=== PATIENT | male | born 1965 | race Caucasian/White ===

== ENCOUNTER → 2016-04-28 | Outpatient (CLI) | payer BC ==
[~2016-04-28] MED LIST: ASPI325T45 PO; CLC100X PO; GLC500 PO; INSU1INJ7 SC; METO50TA16 PO; OXYC-609 PO; SIMV-150 PO; TCMD2 PO
== END | disposition home or self-care (01) ==
LOC: C.LAB1850 07:13
PROVIDERS: ATTEND Nurse Practitioner Family
DX: Z11.59 Encounter for screening for other viral diseases (principal)

== ENCOUNTER → 2016-11-07 | Outpatient (CLI) | payer BC ==
[2016-11-07 12:23] LABS: BASO % 0.2 %; BASO ABS # 0.01 K/uL (0-0.2); COMPLETE YES; EOS % 1.6 %; HEMATOCRIT 52.2 % (42-52); IG% 0.5 %; LYMPH % 27.6 %; LYMPH ABS # 1.78 K/uL (1.2-3.4); MEAN CELL VOLUME 88.3 fL (80-100); MEAN CORPUSCULAR HGB CONC 35.1 g/dl (32-36); MEAN PLATELET VOLUME 10.1 fL (7.4-10.4); MONO % 11.9 %; NEUT % 58.2 %; PLATELET COUNT 200 K/uL (130-400); RED BLOOD COUNT 5.91 M/uL (4.7-6.1); WHITE BLOOD COUNT 6.45 K/uL (4.8-10.8)
[2016-11-07 13:04] LABS: ESTIMATED AVERAGE GLUCOSE 192 mg/dl; HA1C FLAG Normal (Normal)
[2016-11-07 13:28] LABS: ALT/SGPT 40 U/L (12-78); AST/SGOT 31 U/L (15-37); BLOOD UREA NITROGEN 16 mg/dl (7-18); CARBON DIOXIDE 24 mmol/L (21-32); CHLORIDE 108 mmol/L (98-107); GLUCOSE 183 mg/dl (70-99); POTASSIUM 4.2 mmol/L (3.5-5.1); SODIUM 138 mmol/L (136-145)
[2016-11-07 13:34] LABS: ALB/GLOB RATIO 0.9 (0.9-2); ALKALINE PHOSPHATASE 89 U/L (45-117); CHOLESTEROL 199 mg/dl (0-200); CHOLESTEROL/HDL RATIO 6.6; HDL CHOLESTEROL 30 mg/dl; LDL CHOLESTEROL CALCULATED 95 mg/dl; TRIGLYCERIDES 368 mg/dl (0-150); VERY LOW DENSITY LIPOPROT CALC 74 mg/dl
== END | disposition home or self-care (01) ==
LOC: C.LABPVFM 08:37
PROVIDERS: ATTEND Nurse Practitioner Family
DX: E11.9 Type 2 diabetes mellitus without complications (principal); E78.00 Pure hypercholesterolemia, unspecified; I10 Essential (primary) hypertension; I25.10 Atherosclerotic heart disease of native coronary artery without angina pectoris

== ENCOUNTER 2017-07-12 09:00 | Emergency (ER) | payer BC ==
[~2017-07-12] VITALS: Ht 180.3 cm; Wt 91.1 kg
[~2017-07-12 09:00] MED LIST changes: +ASPECOTC PO; -ASPI325T45 PO
[2017-07-12 09:04] VITALS: TEMP 36.4; Ht 180.3 cm; Wt 91.1 kg
--- NOTE | 2017-07-12 09:29 | EMERGENCY ROOM VISIT NOTE ---
History Report prepared by Brandonibe: Mary Lou Barragan Under the Supervision of: Dr. Adama Leija D.O. First contact with patient: 09:13 Chief Complaint: HYPOGLYCEMIA Stated Complaint: LOW SUGAR Nursing Triage Summary: Pt ambulatory with c/o hypoglycemia episode this morning. Pt states approx 0745 started to "sweat profusely", was shaky, dizzy, lightheaded. Reports that blood sugar was 55. Ate mandarin oranges in syrup, fig bars, emergency oral glucose powder and is now feeling better. States he does still feel dizzy and lightheaded. Reports having a similar episode 3 weeks ago and in 2016. at bedside states, "he is supposed to eat a banana before he leaves the house and didn't eat one today." History of Present Illness The patient is a 52 year old male who presents to the Emergency Room with complaints of hypoglycemia since 0745 this morning. He reports this morning during his walk into work, he started to "sweat profusely" and felt "shaky, dizzy and lightheaded". He checked his BSG and it was 55. He did take his insulin this morning. He ate oranges, figs, and emergency oral glucose powder which helped his symptoms. He admits to a similar episode about 3 weeks ago, then in December 2016. The patient reports he was diagnosed with type II diabetes in 2009 after an injury hindered his mobility. He denies any recent abdominal pain, nausea or vomiting. He did have a bowel movement this morning but denies any diarrhea. He denies any recent weight loss or weight gain. He has experienced no recent fevers or illnesses. He drinks alcohol socially but denies any recent ETOH use. Source of History: patient Onset: 744 this morning Position: other (global) Timing: constant Associated Symptoms: + diaphoresis, + weakness, No fevers, No nausea, No vomiting, No abdominal pain, No diarrhea Review of Systems See HPI for pertinent positives & negatives. A total of 10 systems reviewed and were otherwise negative. Past Medical & Surgical Medical Problems: (1) Anticoagulation goal of INR 2.5 to 3.5 (2) Diabetes (3) Diverticulitis (4) Hyperlipidemia LDL goal <100 (5) Pancreatitis Family History Cancer Diabetes mellitus FHx: heart disease Hypertension Social History Smoking Status: Never Smoker Alcohol Use: occasionally Drug Use: none Marital Status: Housing Status: lives with significant other Occupation Status: employed Current/Historical Medications Scheduled Aspirin (Aspirin Ec), 81 MG PO QAM Dapagliflozin Propanediol (Farxiga), 5 MG PO QAM Fish Oil (Hudson-3), 1,200 MG PO BID Insulin Glargine (Lantus), 25 UNITS SC QAM Insulin Glargine (Lantus Solostar), 20 SC QPM Metformin HCl (Metformin HCl), 1,000 MG PO BID Metoprolol Tartrate (Lopressor) (Lopressor), 50 MG PO BID Simvastatin (Simvastatin), 10 MG PO QPM Warfarin Sodium (Coumadin), 4 MG PO PM Allergies Coded Allergies: No Known Allergies (Unverified , 07/12/17) Physical Exam Vital Signs Date Time Temp Pulse Resp B/P (MAP) Pulse Ox O2 Delivery O2 Flow Rate FiO2 07/12/17 10:30 63 18 130/71 95 Room Air 07/12/17 09:55 71 07/12/17 09:04 36.4 71 16 124/78 95 Room Air Physical Exam GENERAL: Patient is awake, alert in no acute distress patient is resting comfortably and showing no signs of anxiety EYES: The conjunctivae are clear. The pupils are round and reactive. EARS, NOSE, MOUTH AND THROAT: The nose is without any evidence of any deformity. Mucous membranes are moist tongue is midline NECK: The neck is nontender and supple. RESPIRATORY: Normal respiratory effort is noted there is no evidence of wheezing rhonchi or rales CARDIOVASCULAR: Regular rate and rhythm noted to auscultation, metallic click noted to auscultation, there no murmurs rubs or gallops normal S1 normal S2 GASTROINTESTINAL: The abdomen is soft. Bowel sounds are present in all quadrants. Abdomen is nontender MUSCULOSKELETAL/EXTREMITIES: There is no evidence of gross deformity full range of motion is noted in the hips and shoulders SKIN: There is no obvious evidence of any rash. There are no petechiae, pallor or cyanosis noted. NEUROLOGIC: Patient is awake alert and oriented x3 strength is symmetric patellar reflexes are 2+ bilaterally Medical Decision & Procedures ER Provider Diagnostic Interpretation: Radiology results as stated below per my review and radiologist interpretation: ABDOMEN 2VIEW W/PA CHEST RTN CLINICAL HISTORY: vomiting nausea COMPARISON STUDY: 10/14/2014 FINDINGS: The soft tissues, psoas shadows, renal outlines and intestinal gas pattern appear normal. There is no evidence for bowel obstruction. There is no evidence for free intraperitoneal air. No abnormal abdominal calcifications are seen. A frontal view of the chest was performed and is unremarkable. IMPRESSION: Normal study. The above report was generated using voice recognition software. It may contain grammatical, syntax or spelling errors. Electronically signed by: Nilton Kaplan M.D. 07/12/2017 10:25 AM Laboratory Results 07/12/17 09:47 Red Blood Count 5.63, Mean Corpuscular Volume 87.6, Mean Corpuscular Hemoglobin 32.1, Mean Corpuscular Hemoglobin Concent 36.7, Mean Platelet Volume 10.4, Neutrophils (%) (Auto) 80.6, Lymphocytes (%) (Auto) 8.1, Monocytes (%) (Auto) 10.2, Eosinophils (%) (Auto) 0.7, Basophils (%) (Auto) 0.2, Neutrophils # (Auto ) 7.31, Lymphocytes # (Auto) 0.73, Monocytes # (Auto) 0.92, Eosinophils # (Auto ) 0.06, Basophils # (Auto) 0.02 07/12/17 09:47 Test 07/12/17 09:47 White Blood Count 9.06 K/uL (4.8-10.8) Red Blood Count 5.63 M/uL (4.7-6.1) Hemoglobin 18.1 g/dL (14.0-18.0) Hematocrit 49.3 % (42-52) Mean Corpuscular Volume 87.6 fL (80-100) Mean Corpuscular Hemoglobin 32.1 pg (25-34) Mean Corpuscular Hemoglobin Concent 36.7 g/dl (32-36) Platelet Count 198 K/uL (130-400) Mean Platelet Volume 10.4 fL (7.4-10.4) Neutrophils (%) (Auto) 80.6 % Lymphocytes (%) (Auto) 8.1 % Monocytes (%) (Auto) 10.2 % Eosinophils (%) (Auto) 0.7 % Basophils (%) (Auto) 0.2 % Neutrophils # (Auto) 7.31 K/uL (1.4-6.5) Lymphocytes # (Auto) 0.73 K/uL (1.2-3.4) Monocytes # (Auto) 0.92 K/uL (0.11-0.59) Eosinophils # (Auto) 0.06 K/uL (0-0.5) Basophils # (Auto) 0.02 K/uL (0-0.2) RDW Standard Deviation 40.7 fL (36.4-46.3) RDW Coefficient of Variation 12.8 % (11.5-14.5) Immature Granulocyte % (Auto) 0.2 % Immature Granulocyte # (Auto) 0.02 K/uL (0.00-0.02) Prothrombin Time 21.9 SECONDS (9.0-12.0) Prothromb Time International Ratio 2.1 (0.9-1.1) Activated Partial Thromboplast Time 31.7 SECONDS (21.0-31.0) Partial Thromboplastin Ratio 1.2 Anion Gap 7.0 mmol/L (3-11) Est Creatinine Clear Calc Drug Dose 80.8 ml/min Estimated GFR () 78.0 Estimated GFR (Non- 67.3 BUN/Creatinine Ratio 14.9 (10-20) Calcium Level 8.8 mg/dl (8.5-10.1) Magnesium Level 1.9 mg/dl (1.8-2.4) Total Bilirubin 0.4 mg/dl (0.2-1) Direct Bilirubin 0.1 mg/dl (0-0.2) Aspartate Amino Transf (AST/SGOT) 32 U/L (15-37) Alanine Aminotransferase (ALT/SGPT) 42 U/L (12-78) Alkaline Phosphatase 82 U/L (45-117) Troponin I < 0.015 ng/ml (0-0.045) Total Protein 8.0 gm/dl (6.4-8.2) Albumin 3.8 gm/dl (3.4-5.0) Lipase 201 U/L (73-393) Thyroid Stimulating Hormone (TSH) 1.070 uIu/ml (0.300-4.500) Laboratory results per my review. ECG Per My Interpretation Indication: other (hypoglycemia) Rate (beats per minute): 67 Rhythm: normal sinus Findings: no ectopy, other (No acute ST segments) Change: no significant change (No significant change from EKG on 10/04/14) ED Course 09: The patient was evaluated in room A3. A complete history and physical examination were performed. 1055: I reevaluated the patient. He is feeling well and is ready to go home. I discussed his results and discharge instructions and he verbalized complete understanding and agreement. Medical Decision Prior records/ancillary studies reviewed and summarized above. Nursing notes reviewed. Differential diagnosis: Etiologies such as metabolic, infection, hypo/hyperglycemia, electrolyte abnormalities, cardiac sources, intracerebral event, toxicologic, neurologic, as well as others were entertained. The patient is a 52-year-old male who presented to the emergency department for an evaluation of hypoglycemia. The patient was treated with oral intake prior to arrival and upon checking the patient's blood sugar was elevated. I discussed patient's laboratory and radiographic studies with him. His significant other was concerned because of his other medical history to be sure there was no other cause for the patient's hypoglycemia. He was encouraged to continue all medications as prescribed and monitor his blood sugar often. 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 Medication Reconcilliation Current Medication List: was personally reviewed by me Blood Pressure Screening Patient's blood pressure: Normal blood pressure Blood pressure disposition: Did not require urgent referral Impression Primary Impression: Hypoglycemia Scribe Attestation The scribe's documentation has been prepared under my direction and personally reviewed by me in its entirety. I confirm that the note above accurately reflects all work, treatment, procedures, and medical decision making performed by me. Departure Information Dispostion Home / Self-Care Referrals Manuel Valdes III, CRNP (PCP) Patient Instructions Hypoglycemia, My [facility] Additional Instructions Call your manager business planning to schedule a follow-up appointment. Continue all medications as prescribed. Do not miss any meals. Continue to monitor your blood sugar as previously. Return to the emergency department if symptoms worsen or if need arises.
[2017-07-12] MEDS ORDERED: ASPI81TA28 PO (09:35)
[2017-07-12] MEDS ORDERED: INSDGIPEN SC (09:35)
[2017-07-12] MEDS ORDERED: DAPA1TAB8 PO (09:43)
[2017-07-12] MEDS ORDERED: OMEG10007 PO (09:43)
[2017-07-12] MEDS ORDERED: WARF2TAB PO (09:45)
[2017-07-12 10:02] LABS: BASO % 0.2 %; BASO ABS # 0.02 K/uL (0-0.2); EOS % 0.7 %; EOS ABS # 0.06 K/uL (0-0.5); HEMATOCRIT 49.3 % (42-52); HEMOGLOBIN 18.1 g/dL (14.0-18.0); IG# 0.02 K/uL (0.00-0.02); LYMPH % 8.1 %; LYMPH ABS # 0.73 K/uL (1.2-3.4); MEAN CELL VOLUME 87.6 fL (80-100); MEAN CORPUSCULAR HEMOGLOBIN 32.1 pg (25-34); MEAN CORPUSCULAR HGB CONC 36.7 g/dl (32-36); MEAN PLATELET VOLUME 10.4 fL (7.4-10.4); MONO % 10.2 %; MONO ABS # 0.92 K/uL (0.11-0.59); NEUT % 80.6 %; NEUT ABS # 7.31 K/uL (1.4-6.5); PLATELET COUNT 198 K/uL (130-400); RED CELL DISTRIBUTION WIDTH CV 12.8 % (11.5-14.5); RED CELL DISTRIBUTION WIDTH SD 40.7 fL (36.4-46.3); WHITE BLOOD COUNT 9.06 K/uL (4.8-10.8)
[2017-07-12 10:14] LABS: INR 2.1 (0.9-1.1); PTT PATIENT 31.7 SECONDS (21.0-31.0)
[2017-07-12 10:20] LABS: ALBUMIN 3.8 gm/dl (3.4-5.0); ALT/SGPT 42 U/L (12-78); AST/SGOT 32 U/L (15-37); BLOOD UREA NITROGEN 18 mg/dl (7-18); CALCIUM 8.8 mg/dl (8.5-10.1); CARBON DIOXIDE 24 mmol/L (21-32); CREATININE 1.22 mg/dl (0.60-1.40); GLUCOSE 232 mg/dl (70-99); LIPASE 201 U/L (73-393); POTASSIUM 3.8 mmol/L (3.5-5.1); SODIUM 137 mmol/L (136-145)
--- NOTE | 2017-07-12 10:26 | DIAGNOSTIC IMAGING REPORT ---
ABDOMEN 2VIEW W/PA CHEST RTN CLINICAL HISTORY: vomiting nausea COMPARISON STUDY: 10/14/2014 FINDINGS: The soft tissues, psoas shadows, renal outlines and intestinal gas pattern appear normal. There is no evidence for bowel obstruction. There is no evidence for free intraperitoneal air. No abnormal abdominal calcifications are seen. A frontal view of the chest was performed and is unremarkable. IMPRESSION: Normal study. The above report was generated using voice recognition software. It may contain grammatical, syntax or spelling errors. Electronically signed by: Nilton Kaplan M.D. 07/12/2017 10:25 AM Dictated Date/Time: 07/12/2017 10:24 AM
[2017-07-12 10:30] VITALS: BP 130/71; PULSE 63; O2SAT 95
[2017-07-12 10:32] LABS: ALKALINE PHOSPHATASE 82 U/L (45-117)
== END 2017-07-12 10:59 | disposition home or self-care (01) ==
LOC: C.EDB 09:01 → C.EDA 10:59
DX: E16.2 Hypoglycemia, unspecified (principal); E11.9 Type 2 diabetes mellitus without complications; E78.5 Hyperlipidemia, unspecified; Z79.82 Long term (current) use of aspirin; Z79.4 Long term (current) use of insulin; Z79.01 Long term (current) use of anticoagulants; Z51.81 Encounter for therapeutic drug level monitoring